=== PATIENT | female | born 1980 | race Caucasian/White ===

== ENCOUNTER 2022-08-20 01:37 | Emergency (ER) | payer OTHER ==
[~2022-08-20] VITALS: Ht 149.9 cm; Wt 63.5 kg
[2022-08-20 01:39] VITALS: BP 144/93
--- NOTE | 2022-08-20 01:46 | NUR ---
TO BED 5 FROM TRIAGE
--- NOTE | 2022-08-20 01:54 | NUR ---
41 yo/f presents to ed w c/o bl leg swelling with tenderness 7/10 x3 days. pt denies any chest pain or sob. pmh: thyroid disease, htn allergies: penicillin, rocephin
[2022-08-20] MEDS ORDERED: SULF-59 PO (02:19)
[2022-08-20] MEDS ORDERED: BENC TP (02:19)
--- NOTE | 2022-08-20 02:25 | NUR ---
Patient discharged. Written and verbal after care instructions given and explained. Patient alert, oriented and verbalized understanding of instructions. Ambulatory with steady gait. All questions addressed prior to discharge. ID band removed. Patient advised to follow up with PMD. Rx of Bactrim Ds tablet and Benadryl itch Stopping cream given. Patient educated on indication of medication including possible reaction and side effects. Opportunity to ask questions provided and answered.
== END 2022-08-20 02:25 | disposition home or self-care (01) ==
LOC: MED 01:37
DX: R21 Rash and other nonspecific skin eruption (principal); I10 Essential (primary) hypertension; E03.9 Hypothyroidism, unspecified; Z79.899 Other long term (current) drug therapy; Z88.0 Allergy status to penicillin; Z88.8 Allergy status to other drugs, medicaments and biological substances
CPT/HCPCS: 99283